=== PATIENT | female | born 1940 | race Caucasian/White ===

== ENCOUNTER 2018-05-22 10:38 | Emergency (ER) | payer MEDICARE ==
[~2018-05-22] VITALS: Ht 165.1 cm; Wt 97.5 kg
--- OUTSIDE RECORDS SUMMARY | 2018-05-22 10:48 | XMS REPORT | Clinical Summary ---
Author Author [facility] Organization [facility] Address Unknown Phone Unavailable Care Team Providers Care [employer] Maintenance Chief Name Role Phone Elizabeth Holman MD PCP Allergies Active Allergy Reactions Severity Noted Date Comments Adhesive Rash Low 01/28/2017 Tape Current Medications Prescription Sig. Disp. Refills Start End Date Status Date predniSONE (DELTASONE) 1 Take 3 tablets ( 3 MG) Active MG tablet daily DULoxetine (CYMBALTA) 60 Take 60 mg by mouth Active mg capsule daily. alendronate (FOSAMAX) 70 Take 70 mg by mouth every Active MG tablet 7 (seven) days. omeprazole (PRILOSEC) 20 Take 20 mg by mouth Active MG capsule daily. cyanocobalamin (VITAMIN Take 1,000 mcg by mouth Active B-12) 1000 MCG tablet daily. calcium phosphate-vitamin Chew 2 tablets daily. Active D3 250-400 mg-unit gummy bite Active Problems Problem Noted Date Coronary artery disease involving [place] coronary artery of [place] heart 03/2017 without angina pectoris Morbid obesity due to excess calories ([facility]) 12/14/2016 PMR (polymyalgia rheumatica) ([facility]) 12/14/2016 Weakness 08/26/2015 Last Assessment & Plan: Hold statin Pain 08/26/2015 Last Assessment & Plan: ESR and CRP elevated and i suspect she has PMR. I discussed this with Dr. Andrea and she agrees. Rheumatology consulted. Low dose steroids initiated Cont to hold statin CSF spinal culture shows no growth; protein wnl Enterovirus negative MRI of C-spine and head negative for acute process Fatigue 08/26/2015 Last Assessment & Plan: PT Fall risk Mixed hyperlipidemia 08/26/2015 Last Assessment & Plan: Hold statin for now Depression 08/26/2015 Last Assessment & Plan: cont lexapro Heart murmur 08/26/2015 Last Assessment & Plan: Echo shows no abnormalities Agatston CAC score, >400 03/03/2015 Overview: Total CACS 625 Obstructive sleep apnea 08/31/2012 Overview: ICD-10 conversion Essential hypertension Resolved Problems Problem Noted Date Resolved Date Temporal arteritis (HCC) 08/28/2015 12/09/2016 Family History Medical History Relation Name Comments Diabetes Daughter Diabetes Mellitus; Rheum arthritis Father Rheumatoid Arthritis; Stroke Father Stroke Syndrome; Hypertension Mother Relation Name Status Comments Daughter Father Mother Social History Tobacco Use Types Packs/Day Years Used Date Never Smoker Smokeless Tobacco: Never Used Alcohol Use Drinks/Week oz/Week Comments No Sex Assigned at Date Recorded Not on file Last Filed Vital Signs Vital Sign Reading Time Taken Blood Pressure 152/91 01/28/2017 11:00 AM CDT Pulse 84 01/28/2017 11:00 AM CDT Temperature 37.2 C (99 F) 09/02/2015 12:45 PM CDT Respiratory Rate 17 09/02/2015 1:00 PM CDT Oxygen Saturation 96% 09/02/2015 1:00 PM CDT Inhaled Oxygen - - Concentration Weight 96.4 kg (212 lb 9.6 oz) 01/28/2017 11:00 AM CDT Height 165.1 cm (5' 5") 01/28/2017 11:00 AM CDT Body Mass Index 35.38 01/28/2017 11:00 AM CDT Plan of Treatment Health Maintenance Due Date Last Done Comments Medicare Annual Wellness 1940 Td # 1940 Zoster Vaccine# (1 of 2) 10/06/1989 Depression Screening 10/06/2004 PHQ-9 # Osteoporosis Screening 10/06/2004 Pneumococcal Immunization 10/06/2004 65+ (1 of 2 - PCV13) Fall Risk Assessment # 09/01/2016 09/02/2015 Influenza Vaccine (#1) 2018 Implants Implanted Type Area Senior Software Test Engineer Device Expiration Model / Identifier Date Serial / Lot Knee Implants Hip Implant Spacer L 3/4 Results Not on filefrom Last 3 Months
--- OUTSIDE RECORDS SUMMARY | 2018-05-22 10:48 | XMS REPORT | Continuity of Care Document ---
Author Author [facility] Organization [facility] Address Unknown Phone Unavailable Allergies There is no data. Medications There is no data. Problems Date Dx Coded Attending Type Code Diagnosis Diagnosed By 12/27/2014 ELLE MCGINNIS, VINAYAK Larson Ot 724.4 12/27/2014 ELLE MCGINNIS, VINAYAK Larson Ot 781.2 12/27/2014 ELLE MCGINNIS, VINAYAK Larson Ot V57.1 01/01/2015 ELLE MCGINNIS, VINAYAK Larson Ot 724.4 01/01/2015 ELLE MCGINNIS, VINAYAK Larson Ot 781.2 01/01/2015 ELLE MCGINNIS, VINAYAK Larson Ot V57.1 01/02/2015 ELLE MCGINNIS, VINAYAK Larson Ot 724.4 01/02/2015 ELLE MCGINNIS, VINAYAK Larson Ot 781.2 01/02/2015 ELLE MCGINNIS, VINAYAK Larson Ot V57.1 01/15/2015 ELLE MCGINNIS, VINAYAK Larson Ot 724.4 01/15/2015 ELLE MCGINNIS, VINAYAK Larson Ot 781.2 01/15/2015 ELLE MCGINNIS, VINAYAK Larson Ot M54.16 01/15/2015 ELLE MCGINNIS, VINAYAK Larson Ot R26.9 Procedures There is no data. Results There is no data. Encounters ACCT No. Visit Date/Time Discharge Status Pt. Type Provider Facility Loc./Unit Complaint [id number] 01/15/2015 12:45:00 01/15/2015 13:36:00 DIS Outpatient VINAYAK ALMEIDA MD [facility] [id number] 01/01/2015 10:22:00 01/01/2015 00:01:00 DIS Outpatient VINAYAK ALMEIDA MD [id number] 01/13/2015 14:37:50 ACT Document Registration
--- NOTE | 2018-05-22 11:05 | ED Back Pain ---
General Stated Complaint: BACK PAIN Source of Information: Patient Exam Limitations: No Limitations History of Present Illness Date Seen by Provider: May 22, 2018 Time Seen by Provider: 11:03 Initial Comments To ER per private vehicle with reports of worsening back pain since Tuesday of last week. She has a history of laminectomy to the lower back, they do not recall which level this was done. This was done by Dr. Senior 4 years ago. She denies any recent injury. He became worse on Tuesday, radiates down both legs but worse on the right leg. She has had loss of control of her bladder for the past few days with new or onset incontinence. She states that she wakes up several times during the night about 4-5 times during the night with the urge to urinate. So, she does have the urge to urinate and this is not likely an overflow incontinence. No fevers or chills. She does not have saddle anesthesia and states that she is able to feel her genitals and sensation is normal. Location: Lumbar Spine Timing/Duration: 5-6 Days Severity: Moderate Pain/Injury Location: Back Associated Symptoms: lower back pain, loss of bladder control Allergies and Home Medications Allergies Coded Allergies: No Known Drug Allergies (Unverified , 05/22/18) Home Medications Cefuroxime Axetil 250 Mg Tablet, 250 MG PO BID Prescribed by: DEWEY BARTON on 05/22/18 1412 Hydrocodone/Acetaminophen 1 Each Tablet, 1 EACH PO Q6H PRN for PAIN-MODERATE Prescribed by: DEWEY BARTON on 05/22/18 1412 Patient Home Medication List Home Medication List Reviewed: Yes Review of Systems Constitutional: see HPI EENTM: see HPI Respiratory: no symptoms reported Cardiovascular: no symptoms reported Genitourinary: see HPI, incontinence Musculoskeletal: see HPI, back pain Skin: no symptoms reported Psychiatric/Neurological: No Symptoms Reported Past Ypwydbl-Hedkyx-Mjkbso Hx Patient Social History Recent Foreign Travel: No (N) Contact w/Someone Who Travel: No (N) Physical Exam Vital Signs Vital Signs - First Documented 05/22/18 10:56 Temp 98.1 Pulse 88 Resp 18 B/P (MAP) 136/82 (100) Pulse Ox 92 O2 Delivery Room Air Capillary Refill : Height, Weight, BMI Height: '" Weight: lbs. oz. kg; BMI Method: General Appearance: No Apparent Distress, WD/WN Neck: Full Range of Motion, Normal Inspection Respiratory: No Accessory Muscle Use, No Respiratory Distress Gastrointestinal: Normal Bowel Sounds, Non Tender, Soft Extremity: Normal Capillary Refill, Normal Inspection Neurologic/Psychiatric: Alert, Oriented x3, Other (left lower extremity strength with plantar flexion and dorsiflexion is 5 out of 5, right is 4 out of 5. Sensation is intact both lower extremities and equal. Both lower extremities are warm) Skin: Normal Color, Warm/Dry Progress/Results/Core Measures Results/Orders Lab Results Laboratory Tests Test 05/22/18 11:12 05/22/18 11:58 Range/Units White Blood Count 7.2 4.3-11.0 10^3/uL Red Blood Count 4.40 4.35-5.85 10^6/uL Hemoglobin 13.6 11.5-16.0 G/DL Hematocrit 42 35-52 % Mean Corpuscular Volume 95 80-99 FL Mean Corpuscular Hemoglobin 31 25-34 PG Mean Corpuscular Hemoglobin Concent 33 32-36 G/DL Red Cell Distribution Width 14.8 H 10.0-14.5 % Platelet Count 220 130-400 10^3/uL Mean Platelet Volume 9.2 7.4-10.4 FL Neutrophils (%) (Auto) 62 42-75 % Lymphocytes (%) (Auto) 27 12-44 % Monocytes (%) (Auto) 10 0-12 % Eosinophils (%) (Auto) 2 0-10 % Basophils (%) (Auto) 0 0-10 % Neutrophils # (Auto) 4.5 1.8-7.8 X 10^3 Lymphocytes # (Auto) 1.9 1.0-4.0 X 10^3 Monocytes # (Auto) 0.7 0.0-1.0 X 10^3 Eosinophils # (Auto) 0.1 0.0-0.3 10^3/uL Basophils # (Auto) 0.0 0.0-0.1 10^3/uL Prothrombin Time 12.8 12.2-14.7 SEC INR Comment 1.0 0.8-1.4 Activated Partial Thromboplast Time 31 24-35 SEC Sodium Level 137 135-145 MMOL/L Potassium Level 3.9 3.6-5.0 MMOL/L Chloride Level 98 98-107 MMOL/L Carbon Dioxide Level 28 21-32 MMOL/L Anion Gap 11 5-14 MMOL/L Blood Urea Nitrogen 21 H 7-18 MG/DL Creatinine 0.88 0.60-1.30 MG/DL Estimat Glomerular Filtration Rate > 60 BUN/Creatinine Ratio 24 Glucose Level 102 70-105 MG/DL Calcium Level 10.2 H 8.5-10.1 MG/DL Corrected Calcium 8.5-10.1 MG/DL Total Bilirubin 0.4 0.1-1.0 MG/DL Aspartate Amino Transf (AST/SGOT) 22 5-34 U/L Alanine Aminotransferase (ALT/SGPT) 17 0-55 U/L Alkaline Phosphatase 70 40-136 U/L Total Protein 7.8 6.4-8.2 GM/DL Albumin 4.6 H 3.2-4.5 GM/DL Urine Color YELLOW Urine Clarity VERY CLOUDY H Urine pH 8 5-9 Urine Specific [place] 1.010 L 1.016-1.022 Urine Protein 1+ H NEGATIVE Urine Glucose (UA) NEGATIVE NEGATIVE Urine Ketones NEGATIVE NEGATIVE Urine Nitrite NEGATIVE NEGATIVE Urine Bilirubin NEGATIVE NEGATIVE Urine Urobilinogen 1 NORMAL MG/DL Urine Leukocyte Esterase 3+ H NEGATIVE Urine RBC (Auto) NEGATIVE NEGATIVE Urine RBC NONE /HPF Urine WBC 10-25 H /HPF Urine Squamous Epithelial Cells 10-25 H /HPF Urine Crystals NONE /LPF Urine Bacteria NEGATIVE /HPF Urine Casts NONE /LPF Urine Mucus NEGATIVE /LPF Urine Culture Indicated YES My Orders Orders - DEWEY BARTON APRN Cbc With Automated Diff (05/22/18 11:00) Comprehensive Metabolic Panel (05/22/18 11:00) Iv Heplock-Insert (Order) (05/22/18 11:00) Mri Lumbar Spine W/O Contrast (05/22/18 11:00) Ua Culture If Indicated (05/22/18 11:00) Bladder Scan (05/22/18 11:00) Ketorolac Injection (Toradol Injection) (05/22/18 11:15) Hydrocodone/Apap 5/325 Tablet (Lortab 5 (05/22/18 11:15) Mri Lumbar Spine W/O Contrast (05/22/18 11:01) Protime With Inr (05/22/18 11:40) Partial Thromboplastin Time (05/22/18 11:40) Urine Culture (05/22/18 11:58) Ceftriaxone For Iv Use (Rocephin For I (05/22/18 12:30) Medications Given in ED Current Medications Medications Dose Ordered Sig/Suki Route Start Time Stop Time Status Last Admin Dose Admin Acetaminophen/ Hydrocodone Bitart 1 tab ONCE ONCE PO 05/22/18 11:15 05/22/18 11:16 DC 05/22/18 11:18 1 TAB Ceftriaxone Sodium 1000 mg/ Sterile Water 10 ml @ 200 mls/hr ONCE ONCE IV 05/22/18 12:30 05/22/18 12:32 DC 05/22/18 13:11 200 MLS/HR Ketorolac Tromethamine 15 mg ONCE ONCE IVP 05/22/18 11:15 05/22/18 11:16 DC 05/22/18 11:20 15 MG Vital Signs/I&O 05/22/18 10:56 Temp 98.1 Pulse 88 Resp 18 B/P (MAP) 136/82 (100) Pulse Ox 92 O2 Delivery Room Air Diagnostic Imaging Diagonstic Imaging: MRI Comments NAME: [facility] REC#: [id number] PT STATUS: REG ER : 1940 PHYSICIAN: DEWEY BARTON APRN ADMIT DATE: 05/22/18/ER Draft Date of Exam:05/22/18 MRI LUMBAR SPINE W/O CONTRAST PROCEDURE: MRI lumbar spine. TECHNIQUE: Multiplanar, multisequence MRI of the lumbar spine was performed without contrast. INDICATION: Severe low back pain. Bilateral lower extremity pain and numbness. Urinary incontinence. COMPARISON: None. FINDINGS: Moderate left apex curvature centered at L3-L4. Minimal anterolisthesis of L4 on L5. There are postoperative findings of bilateral shen and pedicle screw fixation with interbody fusion at L3-L4. No focally suspicious bone marrow signal. No abnormal signal in the conus which terminates at L1. Normal morphology of the cauda equina. The visualized paravertebral soft tissues are unremarkable. 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 L1-L2: No spinal canal, lateral recess, or neuroforaminal narrowing. L2-L3: A right paracentral through foraminal disc protrusion results in moderate right lateral recess narrowing and contributes to advanced right neuroforaminal narrowing. There is also mild left neuroforaminal narrowing. No substantial spinal canal narrowing. L3-L4: Disc space height loss contributes to mild bilateral neuroforaminal narrowing. No substantial spinal canal narrowing. L4-L5: No substantial spinal canal or lateral recess narrowing. Disc space height loss and scoliosis contribute to moderate right neuroforaminal narrowing. L5-S1: No spinal canal or lateral recess narrowing. Disc space height loss contributes to mild bilateral neuroforaminal narrowing. IMPRESSION: 1. Postoperative findings of bilateral shen and pedicle screw fixation with interbody fusion at L3-L4. 2. No high-grade spinal canal narrowing. Scattered lateral recess and neuroforaminal narrowing as above. 3. No acute osseous findings. Dictated on workstation # [id number] Dict: 05/22/18 1321 Trans: 05/22/18 1338 [id number] Interpreted by: MALAIKA VAZQUEZ MD Electronically signed by: Departure Communication (Admissions) Family Conversation I discussed the case with Dr. Senior and he agrees to see her in the outpatient setting. I'll make an appointment for her. 1208-she was asked to urinate and did so on command, post void residual volume was 32 mL on bladder scan Impression Primary Impression: Urinary tract infection Qualified Codes: N39.0 - Urinary tract infection, site not specified Additional Impression: Lumbar radiculopathy Disposition: 01 HOME, SELF-CARE Condition: Stable Departure-Patient Inst. Decision time for Depature: 14:11 Referrals: SABAS SENIOR,LOCAL PHYSICIAN (PCP) Primary Care Physician Patient Instructions: Radiculopathy (DC), Urinary Tract Infection, Adult (DC) Add. Discharge Instructions: 1. You do not hear back from Dr. Senior [employer] today then call his office tomorrow to make an appointment to be seen at their earliest convenience. Pain medication and antibiotics as directed. Scripts Hydrocodone/Acetaminophen ([address] 5-325 Tablet) 1 Each Tablet 1 EACH PO Q6H PRN for PAIN-MODERATE MDD 10, #14 TAB Prov: DEWEY BARTON MEAT SUPERVISOR 05/22/18 Cefuroxime Axetil (Cefuroxime) 250 Mg Tablet 250 MG PO BID, #10 TAB Prov: DEWEY BARTON MEAT SUPERVISOR 2/18/19 Copy Copies To 1: SABAS SENIOR PETER J APRN May 22, 2018 11:05
[2018-05-22] MEDS ORDERED: KETOROLAC 30 MG/ML VIAL IVP ONE (11:15)
[2018-05-22] MEDS ORDERED: HYDROcodone/APAP 5 MG/325 MG (LORTAB) TAB PO ONE (11:15)
[2018-05-22 11:17] LABS: BASOPHILS % (AUTO) 0 % (0-10); EOSINOPHILS # (AUTO) 0.1 10^3/uL (0.0-0.3); EOSINOPHILS % (AUTO) 2 % (0-10); HEMATOCRIT 42 % (35-52); HEMOGLOBIN 13.6 G/DL (11.5-16.0); LYMPHOCYTES # (AUTO) 1.9 X 10^3 (1.0-4.0); LYMPHOCYTES % (AUTO) 27 % (12-44); MEAN CORPUSCULAR HEMOGLOBIN 31 PG (25-34); MEAN CORPUSCULAR HGB CONC 33 G/DL (32-36); MEAN CORPUSCULAR VOLUME 95 FL (80-99); MEAN PLATELET VOLUME 9.2 FL (7.4-10.4); MONOCYTES # (AUTO) 0.7 X 10^3 (0.0-1.0); MONOCYTES % (AUTO) 10 % (0-12); NEUTROPHILS # (AUTO) 4.5 X 10^3 (1.8-7.8); NEUTROPHILS % (AUTO) 62 % (42-75); PLATELET COUNT 220 10^3/uL (130-400); RED CELL DISTRIBUTION WIDTH 14.8 % (10.0-14.5); WHITE BLOOD COUNT 7.2 10^3/uL (4.3-11.0)
[2018-05-22 11:34] LABS: ALANINE AMINOTRANSFERASE 17 U/L (0-55); ALBUMIN 4.6 GM/DL (3.2-4.5); ALKALINE PHOSPHATASE 70 U/L (40-136); BILIRUBIN,TOTAL 0.4 MG/DL (0.1-1.0); BUN/CREATININE RATIO 24; CALCIUM 10.2 MG/DL (8.5-10.1); CARBON DIOXIDE 28 MMOL/L (21-32); CHLORIDE 98 MMOL/L (98-107); CREATININE SERUM 0.88 MG/DL (0.60-1.30); GFR ESTIMATED > 60; GLUCOSE 102 MG/DL (70-105); POTASSIUM 3.9 MMOL/L (3.6-5.0); SODIUM 137 MMOL/L (135-145); TOTAL PROTEIN 7.8 GM/DL (6.4-8.2)
[2018-05-22 11:55] LABS: PROTHROMBIN TIME PATIENT 12.8 SEC (12.2-14.7)
[2018-05-22 12:11] LABS: BILIRUBIN,URINE NEGATIVE (NEGATIVE); CLARITY,URINE VERY CLOUDY; COLOR,URINE YELLOW; GLUCOSE, URINE (UA) NEGATIVE (NEGATIVE); KETONES,URINE NEGATIVE (NEGATIVE); LEUKOCYTE ESTERASE ,URINE 3+ (NEGATIVE); NITRITE,URINE NEGATIVE (NEGATIVE); PH,URINE 8 (5-9); PROTEIN,URINE 1+ (NEGATIVE); UROBILINOGEN,URINE 1 MG/DL (NORMAL)
[2018-05-22 12:25] LABS: BACTERIA,URINE NEGATIVE /HPF
[2018-05-22] MEDS ORDERED: cefTRIAXone FOR IV USE 1,000 MG in WATER (STERILE) FOR INJECTION 10 ML IV ONE (12:30)
--- NOTE | 2018-05-22 13:38 | Diagnostic Imaging Report ---
PROCEDURE: MRI lumbar spine. TECHNIQUE: Multiplanar, multisequence MRI of the lumbar spine was performed without contrast. INDICATION: Severe low back pain. Bilateral lower extremity pain and numbness. Urinary incontinence. COMPARISON: None. FINDINGS: Moderate left apex curvature centered at L3-L4. Minimal anterolisthesis of L4 on L5. There are postoperative findings of bilateral shen and pedicle screw fixation with interbody fusion at L3-L4. No focally suspicious bone marrow signal. No abnormal signal in the conus which terminates at L1. Normal morphology of the cauda equina. The visualized paravertebral soft tissues are unremarkable. 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 L1-L2: No spinal canal, lateral recess, or neuroforaminal narrowing. L2-L3: A right paracentral through foraminal disc protrusion results in moderate right lateral recess narrowing and contributes to advanced right neuroforaminal narrowing. There is also mild left neuroforaminal narrowing. No substantial spinal canal narrowing. L3-L4: Disc space height loss contributes to mild bilateral neuroforaminal narrowing. No substantial spinal canal narrowing. L4-L5: No substantial spinal canal or lateral recess narrowing. Disc space height loss and scoliosis contribute to moderate right neuroforaminal narrowing. L5-S1: No spinal canal or lateral recess narrowing. Disc space height loss contributes to mild bilateral neuroforaminal narrowing. IMPRESSION: 1. Postoperative findings of bilateral shen and pedicle screw fixation with interbody fusion at L3-L4. 2. No high-grade spinal canal narrowing. Scattered lateral recess and neuroforaminal narrowing as above. 3. No acute osseous findings. Dictated by: Dictated on workstation # [id number]
[2018-05-22 14:27] VITALS: BP 142/109
== END 2018-05-22 14:36 | disposition home or self-care (01) ==
LOC: EDUNIT# 10:38 → ER 10:45
DX: N39.0 Urinary tract infection, site not specified (principal); M54.16 Radiculopathy, lumbar region; Z98.1 Arthrodesis status
CPT/HCPCS: 36415; 72148; 80053; 81000; 85025; 85610; 85730; 87088; 96374; 96375

== ENCOUNTER → 2018-06-30 | Outpatient (CLI) | payer MEDICARE ==
[~2018-06-30] MED LIST: CEFU250T80 PO; HYDR-4226 PO
[2018-06-30 15:16] LABS: BASOPHILS % (AUTO) 0 % (0-10); EOSINOPHILS # (AUTO) 0.1 10^3/uL (0.0-0.3); EOSINOPHILS % (AUTO) 2 % (0-10); HEMATOCRIT 35 % (35-52); HEMOGLOBIN 11.4 G/DL (11.5-16.0); LYMPHOCYTES % (AUTO) 27 % (12-44); MEAN CORPUSCULAR HEMOGLOBIN 31 PG (25-34); MEAN CORPUSCULAR HGB CONC 33 G/DL (32-36); MEAN CORPUSCULAR VOLUME 96 FL (80-99); MEAN PLATELET VOLUME 8.2 FL (7.4-10.4); MONOCYTES % (AUTO) 13 % (0-12); NEUTROPHILS # (AUTO) 4.4 X 10^3 (1.8-7.8); NEUTROPHILS % (AUTO) 59 % (42-75); PLATELET COUNT 398 10^3/uL (130-400); RED CELL DISTRIBUTION WIDTH 14.9 % (10.0-14.5); WHITE BLOOD COUNT 7.5 10^3/uL (4.3-11.0)
[2018-06-30 15:47] LABS: ALANINE AMINOTRANSFERASE 11 U/L (0-55); ALBUMIN 4.2 GM/DL (3.2-4.5); ALKALINE PHOSPHATASE 148 U/L (40-136); BILIRUBIN,TOTAL 0.5 MG/DL (0.1-1.0); BUN/CREATININE RATIO 18; CALCIUM 9.9 MG/DL (8.5-10.1); CARBON DIOXIDE 24 MMOL/L (21-32); CHLORIDE 100 MMOL/L (98-107); CREATININE SERUM 0.87 MG/DL (0.60-1.30); GFR ESTIMATED > 60; GLUCOSE 91 MG/DL (70-105); POTASSIUM 3.7 MMOL/L (3.6-5.0); SODIUM 140 MMOL/L (135-145); TOTAL PROTEIN 7.6 GM/DL (6.4-8.2)
== END ==
LOC: LAB 14:51
PROVIDERS: ATTEND Internal Medicine
DX: D62 Acute posthemorrhagic anemia (principal); R53.83 Other fatigue; E86.0 Dehydration
CPT/HCPCS: 36415; 80053; 82728; 83540; 85025

== ENCOUNTER → 2019-06-20 | Outpatient (CLI) | payer MEDICARE ==
[2019-06-20 11:58] LABS: ALANINE AMINOTRANSFERASE 12 U/L (0-55); ALBUMIN 4.3 GM/DL (3.2-4.5); ALKALINE PHOSPHATASE 77 U/L (40-136); BILIRUBIN,TOTAL 0.4 MG/DL (0.1-1.0); BUN/CREATININE RATIO 19; CALCIUM 9.6 MG/DL (8.5-10.1); CARBON DIOXIDE 28 MMOL/L (21-32); CHLORIDE 98 MMOL/L (98-107); CREATININE SERUM 0.83 MG/DL (0.60-1.30); GFR ESTIMATED > 60; GLUCOSE 96 MG/DL (70-105); POTASSIUM 4.3 MMOL/L (3.6-5.0); SODIUM 140 MMOL/L (135-145); TOTAL PROTEIN 7.6 GM/DL (6.4-8.2)
[2019-06-20 11:59] LABS: EOSINOPHILS % (AUTO) 3 % (0-10); HEMATOCRIT 35 % (35-52); HEMOGLOBIN 10.8 G/DL (11.5-16.0); LYMPHOCYTES % (AUTO) 32 % (12-44); MEAN CORPUSCULAR HEMOGLOBIN 26 PG (25-34); MEAN CORPUSCULAR HGB CONC 31 G/DL (32-36); MEAN CORPUSCULAR VOLUME 85 FL (80-99); MEAN PLATELET VOLUME 9.4 FL (7.4-10.4); MONOCYTES % (AUTO) 10 % (0-12); NEUTROPHILS % (AUTO) 55 % (42-75); PLATELET COUNT 301 10^3/uL (130-400); RED CELL DISTRIBUTION WIDTH 16.5 % (10.0-14.5); WHITE BLOOD COUNT 6.8 10^3/uL (4.3-11.0)
[2019-06-20 12:00] LABS: BASOPHILS % (AUTO) 0 % (0-10); EOSINOPHILS # (AUTO) 0.2 10^3/uL (0.0-0.3); LYMPHOCYTES # (AUTO) 2.2 X 10^3 (1.0-4.0); MONOCYTES # (AUTO) 0.7 X 10^3 (0.0-1.0); NEUTROPHILS # (AUTO) 3.7 X 10^3 (1.8-7.8)
[2019-06-20 15:27] LABS: CHOLESTEROL 245 MG/DL (< 200); HDL CHOLESTEROL 64 MG/DL (40-60); TRIGLYCERIDES 217 MG/DL (<150); VLDL CHOLESTEROL 43 MG/DL (5-40)
[2019-06-20 15:51] LABS: FREE T4 (FREE THYROXINE) 0.79 NG/DL (0.70-1.48)
== END ==
LOC: LAB FS 10:05
PROVIDERS: ATTEND Internal Medicine
DX: E03.9 Hypothyroidism, unspecified (principal); R73.9 Hyperglycemia, unspecified; I10 Essential (primary) hypertension; Z13.6 Encounter for screening for cardiovascular disorders
CPT/HCPCS: 36415; 80053; 80061; 83036; 84439; 84443; 85025

== ENCOUNTER → 2019-08-28 | Outpatient (CLI) | payer MEDICARE | LOC: LAB FS 10:24 | PROVIDERS: ATTEND Internal Medicine | DX: Z13.6 Encounter for screening for cardiovascular disorders (principal); I10 Essential (primary) hypertension; R73.9 Hyperglycemia, unspecified | CPT/HCPCS: 36415; 80061; 83036; 84443 ==

== ENCOUNTER → 2019-11-09 | Outpatient (CLI) | payer MEDICARE | LOC: LAB FS 11:48 | PROVIDERS: ATTEND Internal Medicine | DX: D64.9 Anemia, unspecified (principal) | CPT/HCPCS: 36415; 82728 ==

== ENCOUNTER → 2019-11-15 | Outpatient (CLI) | payer MEDICARE ==
[~2019-11-15] VITALS: Ht 65 cm; Wt 97.2 kg
[~2019-11-15] MED LIST changes: +IRON DEXTRAN 1,000 MG/NS 250 ML IVPB IV ONE; +IRON DEXTRAN 25 MG/NS 6.25 ML TOTAL VOLUME IV NR
[2019-11-15 16:00] VITALS: BP 168/99
== END ==
LOC: SDC 12:55
PROVIDERS: ATTEND Internal Medicine
DX: E83.10 Disorder of iron metabolism, unspecified (principal)
CPT/HCPCS: 96365

== ENCOUNTER → 2019-12-20 | Outpatient (CLI) | payer MEDICARE ==
[~2019-12-20] MED LIST changes: -IRON DEXTRAN 1,000 MG/NS 250 ML IVPB IV ONE; -IRON DEXTRAN 25 MG/NS 6.25 ML TOTAL VOLUME IV NR
[2019-12-20 10:30] LABS: HEMATOCRIT 40 % (35-52); HEMOGLOBIN 12.2 G/DL (11.5-16.0); MEAN CORPUSCULAR HEMOGLOBIN 28 PG (25-34); WHITE BLOOD COUNT 5.5 10^3/uL (4.3-11.0)
[2019-12-20 10:31] LABS: BASOPHILS % (AUTO) 0 % (0-10); EOSINOPHILS # (AUTO) 0.2 10^3/uL (0.0-0.3); EOSINOPHILS % (AUTO) 4 % (0-10); LYMPHOCYTES # (AUTO) 1.7 X 10^3 (1.0-4.0); LYMPHOCYTES % (AUTO) 31 % (12-44); MEAN CORPUSCULAR HGB CONC 31 G/DL (32-36); MEAN CORPUSCULAR VOLUME 90 FL (80-99); MEAN PLATELET VOLUME 8.9 FL (7.4-10.4); MONOCYTES # (AUTO) 0.6 X 10^3 (0.0-1.0); MONOCYTES % (AUTO) 11 % (0-12); NEUTROPHILS % (AUTO) 54 % (42-75); PLATELET COUNT 227 10^3/uL (130-400)
== END ==
LOC: LAB FS 09:39
PROVIDERS: ATTEND Internal Medicine
DX: D50.0 Iron deficiency anemia secondary to blood loss (chronic) (principal)
CPT/HCPCS: 36415; 82728; 83540; 85025

== ENCOUNTER → 2020-03-04 | Outpatient (CLI) | payer MEDICARE ==
--- NOTE | 2020-03-04 12:31 | Diagnostic Imaging Report ---
EXAMINATION: Left ankle 3 views HISTORY: ANKLE PAIN COMPARISON: None available. FINDINGS: There is moderate medial malleolus with tissue swelling. No acute fracture seen. Mortise is intact. IMPRESSION: 1. Moderate medial malleolar swelling without acute fracture. Dictated by: Dictated on workstation # [id number]
== END ==
LOC: RAD FS 10:54
PROVIDERS: ATTEND Internal Medicine
DX: M25.572 Pain in left ankle and joints of left foot (principal); M79.89 Other specified soft tissue disorders
CPT/HCPCS: 73610

== ENCOUNTER 2020-06-10 10:18 | Outpatient (CLI) | payer MEDICARE ==
[~2020-06-10] VITALS: Ht 165.1 cm; Wt 102.7 kg
[2020-06-10 10:25] VITALS: BP 150/98
[2020-06-10] MEDS ORDERED: IRON DEXTRAN 25 MG/NS 6.25 ML TOTAL VOLUME IV NR ×3 (10:45)
[2020-06-10] MEDS ORDERED: IRON DEXTRAN 1,000 MG/NS 250 ML IVPB IV NR ×2 (11:00)
== END 2020-06-10 12:45 | disposition home or self-care (01) ==
LOC: SDC 10:18
PROVIDERS: ATTEND Internal Medicine
DX: E61.1 Iron deficiency (principal)
CPT/HCPCS: 96365

== ENCOUNTER 2020-09-11 19:08 | Emergency (ER) | payer MEDICARE ==
[~2020-09-11] VITALS: Ht 172 cm; Wt 129.0 kg
--- NOTE | 2020-09-11 20:06 | ED Lower Extremity ---
General Chief Complaint: Trauma-Non Activation Stated Complaint: FALL Nursing Triage Note: patient fell from standing Nursing Sepsis Screen: No Definite Risk Source: patient Exam Limitations: no limitations (DEWEY BARTON APRN) History of Present Illness Date Seen by Provider: Sep 11, 2020 Time Seen by Provider: 20:06 Initial Comments To ER by [facility] with reports of right leg pain. Her slipped and fell and brought the ambulance here to be evaluated. She was then going to talk to someone on the phone and while in her house she too slipped and fell now having severe right thigh pain. Did not hit her head. She had her right knee replaced by Dr. ALMEIDA [facility] [address] [place] [address] about a year ago. She follows with [facility] rheumatology for polymyalgia rheumatica and is on. No anticoagulant use. Location Injury Occurred: at facility Onset: just prior to arrival Severity: moderate Pain/Injury Location: right leg Method of Injury: fell Modifying Factors: Worse With Movement (DEWEY BARTON APRN) Allergies and Home Medications Allergies Coded Allergies: No Known Drug Allergies (Unverified , 05/22/18) Home Medications Cefuroxime Axetil 250 Mg Tablet, 250 MG PO BID Prescribed by: DEWEY BARTON on 05/22/18 1412 Hydrocodone/Acetaminophen 1 Each Tablet, 1 EACH PO Q6H PRN for PAIN-MODERATE Prescribed by: DEWEY BARTON on 05/22/18 1412 Patient Home Medication List Home Medication List Reviewed: Yes (DEWEY BARTON APRN) Review of Systems Constitutional: see HPI EENTM: see HPI Respiratory: no symptoms reported Cardiovascular: no symptoms reported Genitourinary: no symptoms reported Musculoskeletal: see HPI Skin: no symptoms reported Psychiatric/Neurological: No Symptoms Reported (DEWEY BARTON APRN) Past Lxwyfxm-Zpjylp-Yhgkil Hx Patient Social History Alcohol Use: Denies Use Smoking Status: Never a Smoker 2nd Hand Smoke Exposure: No Recent Infectious Disease Expo: No Recent Hopitalizations: No (DEWEY BARTON APRN) Seasonal Allergies Seasonal Allergies: No (DEWEY BARTON APRN) Past Medical History Surgeries: Yes (bilat hip, bilat knee, gastric bypass) Abdominal, Orthopedic Respiratory: No Cardiac: Yes Hypertension Neurological: No Genitourinary: No Gastrointestinal: No Musculoskeletal: No Endocrine: No HEENT: No Cancer: No Psychosocial: No Integumentary: No Blood Disorders: No (DEWEY BARTON APRN) Physical Exam Vital Signs Vital Signs - First Documented 09/11/20 19:37 Temp 36.9 Pulse 114 Resp 20 B/P (MAP) 154/96 (115) Pulse Ox 93 O2 Delivery Room Air (CHRISTIAN RUBIN MD) Vital Signs Capillary Refill : Greater Than 3 Seconds (DEWEY BARTON APRN) Height, Weight, BMI Height: 5'5.00" Weight: 215lbs. oz. 97.239388be; 43.00 BMI Method:Stated General Appearance: WD/WN, no apparent distress HEENT: PERRL/EOMI, normal ENT inspection Neck: non-tender, full range of motion Respiratory: no respiratory distress, no accessory muscle use Hips: bilateral hip non-tender, bilateral hip normal inspection, bilateral hip normal range of motion Legs: left leg non-tender, left leg normal inspection, left leg normal range of motion; right leg pain, right leg soft tissue tenderness, right leg swelling Knees: left knee non-tender, left knee normal inspection, left knee normal range of motion; right knee pain, right knee soft tissue tenderness, right knee swelling Ankles: bilateral ankle non-tender, bilateral ankle normal inspection, bilateral ankle normal range of motion Neurologic/Psychiatric: alert, normal mood/affect, oriented x 3 Skin: normal color, warm/dry (DEWEY BARTON APRN) Progress/Results/Core Measures Results/Orders Lab Results Laboratory Tests Test 09/11/20 20:00 09/11/20 22:06 Range/Units White Blood Count 8.1 4.3-11.0 10^3/uL Red Blood Count 4.20 3.80-5.11 10^6/uL Hemoglobin 13.5 11.5-16.0 g/dL Hematocrit 41 35-52 % Mean Corpuscular Volume 99 80-99 fL Mean Corpuscular Hemoglobin 32 25-34 pg Mean Corpuscular Hemoglobin Concent 33 32-36 g/dL Red Cell Distribution Width 13.2 10.0-14.5 % Platelet Count 176 130-400 10^3/uL Mean Platelet Volume 9.0 9.0-12.2 fL Immature Granulocyte % (Auto) 1 % Neutrophils (%) (Auto) 61 42-75 % Lymphocytes (%) (Auto) 27 12-44 % Monocytes (%) (Auto) 9 0-12 % Eosinophils (%) (Auto) 3 0-10 % Basophils (%) (Auto) 0 0-10 % Neutrophils # (Auto) 4.9 1.8-7.8 10^3/uL Lymphocytes # (Auto) 2.2 1.0-4.0 10^3/uL Monocytes # (Auto) 0.7 0.0-1.0 10^3/uL Eosinophils # (Auto) 0.2 0.0-0.3 10^3/uL Basophils # (Auto) 0.0 0.0-0.1 10^3/uL Immature Granulocyte # (Auto) 0.1 0.0-0.1 10^3/uL Prothrombin Time 13.8 12.2-14.7 SEC INR Comment 1.0 0.8-1.4 Sodium Level 141 135-145 MMOL/L Potassium Level 3.9 3.6-5.0 MMOL/L Chloride Level 104 98-107 MMOL/L Carbon Dioxide Level 26 21-32 MMOL/L Anion Gap 11 5-14 MMOL/L Blood Urea Nitrogen 20 H 7-18 MG/DL Creatinine 0.93 0.60-1.30 MG/DL Estimat Glomerular Filtration Rate 58 BUN/Creatinine Ratio 22 Glucose Level 140 H 70-105 MG/DL Calcium Level 9.9 8.5-10.1 MG/DL Corrected Calcium 10.0 8.5-10.1 MG/DL Total Bilirubin 0.4 0.1-1.0 MG/DL Aspartate Amino Transf (AST/SGOT) 18 5-34 U/L Alanine Aminotransferase (ALT/SGPT) 14 0-55 U/L Alkaline Phosphatase 67 40-136 U/L Total Protein 7.3 6.4-8.2 GM/DL Albumin 3.9 3.2-4.5 GM/DL SARS-CoV-2 RNA (RT-PCR) Not Detected Not Detecte (CHRISTIAN RUBIN MD) Vital Signs/I&O 09/11/20 09/11/20 19:37 23:49 Temp 36.9 36.9 Pulse 114 108 Resp 20 19 B/P (MAP) 154/96 (115) 144/90 (115) Pulse Ox 93 97 O2 Delivery Room Air Room Air (CHRISTIAN RUBIN MD) Blood Pressure Mean: 115 Diagnostic Imaging Diagonstic Imaging: Xray Comments NAME: CHRYSTAL CHOIN Lauri [facility] REC#: [id number] PT STATUS: REG ER : 1940 PHYSICIAN: DEWEY BARTON APRN ADMIT DATE: 09/11/20/ER Draft Date of Exam:09/11/20 FEMUR, RIGHT, 2 VIEWS EXAMINATION: Right femur 2 or more views. HISTORY: Fall. COMPARISON: None available. FINDINGS: There is right total hip arthroplasty. There is right knee arthroplasty. There is one shaft width displacement of a periprosthetic fracture of the right distal femur with a spiral orientation. IMPRESSION: One shaft width displacement of a periprosthetic spiral fracture of the right distal femur. Dictated on workstation # [id number] Dict: 09/11/202029 Trans: 09/11/202037 [facility] [id number] Interpreted by: CHRISTIANA SOSA MD Electronically signed by: NAME: STEHPMARICARMEN R [facility] REC#: [id number] PT STATUS: REG ER : 1940 PHYSICIAN: DEWEY BARTON APRN ADMIT DATE: 09/11/20/ER Draft Date of Exam:09/11/20 TIBIA/FIBULA, RIGHT, 2 VIEWS EXAMINATION: Right tibia and fibula 2 views HISTORY: Fall. COMPARISON: None available. FINDINGS: Right distal femur fracture is partially imaged. There is right total knee arthroplasty. There is an old healed right distal tibial fracture. No acute fracture is seen in the tibia or fibula. IMPRESSION: No fracture is seen in the right tibia or fibula. Dictated on workstation # [id number] Dict: 09/11/202030 Trans: 09/11/202037 [facility] [id number] Interpreted by: CHRISTIANA SOSA MD Electronically signed by: NAME: MARICARMEN CHOI R [facility] REC#: [id number] PT STATUS: REG ER : 1940 PHYSICIAN: DEWEY BARTON APRN ADMIT DATE: 09/11/20/ER Draft Date of Exam:09/11/20 CHEST 1 VIEW, AP/PA ONLY EXAMINATION: Chest 1 view. HISTORY: Fracture. COMPARISON: None available. FINDINGS: Heart is mildly enlarged. No pleural effusion or pneumothorax. No edema or pneumonia. IMPRESSION: Clear lungs. Dictated on workstation # [id number] Dict: 09/11/202035 Trans: 09/11/202041 [facility] [id number] Interpreted by: CHRISTIANA SOSA MD Electronically signed by: (DEWEY BARTON APRN) Departure Communication (Admissions) 2042-discussed with the patient and family. The daughter Irene Maloney [phone] lives in [facility], the patient and her live in [place]. She was brought here by [place] [facility]. However her complex periprosthetic fracture requires transfer to higher level of care (was discussed with our on-call orthopedist Dr. Willson). It would make the most sense to go to [facility] where she is already established with rheumatology and she will be closer to her daughter who lives in [place]. Patient's is to be admitted here for his intractable right hip pain without fracture. 2115-I spoke with orthopedist from [facility]. He would recommend the patient be transferred to their facility where her knee was replaced at. As such I called [facility] where Dr. ALMEIDA practices. Their transfer center reports that they are on med-surg diversion. I will call back [facility] and see if they would be willing to accept. 2151-[facility] has called back and accepted her to the [facility]. Would like a rapid covid swab and will call back with bed assignment. (DEWEY BARTON APRN) Impression Primary Impression: Right femoral fracture Disposition: XFER SHT-TRM HOSP Condition: Stable Transfer Transfer Reason: Exceeds level of care Time Spoke to Accepting Phy: 20:45 (DEWEY BARTON APRN) Departure-Patient Inst. Referrals: HODA WHITE DO (PCP/Family) Primary Care Physician Attending physician note: I was physically present as attending physician in the emergency department during the care of this patient, but I did not participate directly in the care of this patient. (CHRISTIAN RUBIN MD) DEWEY BARTON APRN Sep 11, 2020 20:06 CHRISTIAN RUBIN MD Sep 12, 2020 14:22
[2020-09-11 20:11] LABS: BASOPHILS % (AUTO) 0 % (0-10); EOSINOPHILS # (AUTO) 0.2 10^3/uL (0.0-0.3); EOSINOPHILS % (AUTO) 3 % (0-10); HEMATOCRIT 41 % (35-52); HEMOGLOBIN 13.5 g/dL (11.5-16.0); LYMPHOCYTES # (AUTO) 2.2 10^3/uL (1.0-4.0); LYMPHOCYTES % (AUTO) 27 % (12-44); MEAN CORPUSCULAR HEMOGLOBIN 32 pg (25-34); MEAN CORPUSCULAR HGB CONC 33 g/dL (32-36); MEAN CORPUSCULAR VOLUME 99 fL (80-99); MONOCYTES # (AUTO) 0.7 10^3/uL (0.0-1.0); MONOCYTES % (AUTO) 9 % (0-12); NEUTROPHILS # (AUTO) 4.9 10^3/uL (1.8-7.8); NEUTROPHILS % (AUTO) 61 % (42-75); PLATELET COUNT 176 10^3/uL (130-400); WHITE BLOOD COUNT 8.1 10^3/uL (4.3-11.0)
[2020-09-11 20:16] LABS: PROTHROMBIN TIME PATIENT 13.8 SEC (12.2-14.7)
[2020-09-11 20:26] LABS: ALBUMIN 3.9 GM/DL (3.2-4.5); BILIRUBIN,TOTAL 0.4 MG/DL (0.1-1.0); CALCIUM 9.9 MG/DL (8.5-10.1); CREATININE SERUM 0.93 MG/DL (0.60-1.30); POTASSIUM 3.9 MMOL/L (3.6-5.0); TOTAL PROTEIN 7.3 GM/DL (6.4-8.2)
--- NOTE | 2020-09-11 20:38 | Diagnostic Imaging Report ---
EXAMINATION: Right femur 2 or more views. HISTORY: Fall. COMPARISON: None available. FINDINGS: There is right total hip arthroplasty. There is right knee arthroplasty. There is one shaft width displacement of a periprosthetic fracture of the right distal femur with a spiral orientation. IMPRESSION: One shaft width displacement of a periprosthetic spiral fracture of the right distal femur. Dictated by: Dictated on workstation # [id number]
--- NOTE | 2020-09-11 20:39 | Diagnostic Imaging Report ---
EXAMINATION: Right tibia and fibula 2 views HISTORY: Fall. COMPARISON: None available. FINDINGS: Right distal femur fracture is partially imaged. There is right total knee arthroplasty. There is an old healed right distal tibial fracture. No acute fracture is seen in the tibia or fibula. IMPRESSION: No fracture is seen in the right tibia or fibula. Dictated by: Dictated on workstation # [id number]
--- NOTE | 2020-09-11 20:42 | Diagnostic Imaging Report ---
EXAMINATION: Chest 1 view. HISTORY: Fracture. COMPARISON: None available. FINDINGS: Heart is mildly enlarged. No pleural effusion or pneumothorax. No edema or pneumonia. IMPRESSION: Clear lungs. Dictated by: Dictated on workstation # [id number]
[2020-09-11] MEDS ORDERED: fentaNYL INJ 100 MCG/2 ML AMP IVP ONE (21:00)
[2020-09-11 23:49] VITALS: BP 144/90
== END 2020-09-11 23:55 | disposition short-term general hospital (02) ==
LOC: EDUNIT# 19:08 → ER 19:32
DX: S72.491A Other fracture of lower end of right femur, initial encounter for closed fracture (principal); M97.01XA Periprosthetic fracture around internal prosthetic right hip joint, initial encounter; I10 Essential (primary) hypertension; Z20.822 Contact with and (suspected) exposure to COVID-19; W01.0XXA Fall on same level from slipping, tripping and stumbling without subsequent striking against object, initial encounter
CPT/HCPCS: 36415; 71045; 73552; 73590; 80053; 85025; 85610; 87636; 93005

== ENCOUNTER → 2021-05-04 | Outpatient (RCR) | payer MEDICARE | END | disposition home or self-care (01) | PROVIDERS: ATTEND Orthopaedic Surgery | DX: S72.401D Unspecified fracture of lower end of right femur, subsequent encounter for closed fracture with routine healing (principal); W19.XXXD Unspecified fall, subsequent encounter ==

== ENCOUNTER → 2021-06-01 | Outpatient (RCR) | payer MEDICARE | END | disposition home or self-care (01) | PROVIDERS: ATTEND Orthopaedic Surgery | DX: S72.401D Unspecified fracture of lower end of right femur, subsequent encounter for closed fracture with routine healing (principal); W19.XXXD Unspecified fall, subsequent encounter ==

== ENCOUNTER 2021-06-29 11:19 | Outpatient (RCR) | payer MEDICARE | END 2021-07-02 | disposition home or self-care (01) | PROVIDERS: ATTEND Orthopaedic Surgery | DX: S72.401D Unspecified fracture of lower end of right femur, subsequent encounter for closed fracture with routine healing (principal); W19.XXXD Unspecified fall, subsequent encounter ==

== ENCOUNTER 2021-07-17 11:24 | Outpatient (RCR) | payer MEDICARE | END 2021-07-17 12:50 | disposition home or self-care (01) | PROVIDERS: ATTEND Orthopaedic Surgery | DX: S72.401D Unspecified fracture of lower end of right femur, subsequent encounter for closed fracture with routine healing (principal); W19.XXXD Unspecified fall, subsequent encounter; Z96.653 Presence of artificial knee joint, bilateral; Z96.643 Presence of artificial hip joint, bilateral ==

== ENCOUNTER 2021-09-01 05:28 | Outpatient (CLI) | payer MEDICARE ==
[~2021-09-01] VITALS: Ht 165.4 cm; Wt 95.5 kg
[2021-09-01] MEDS ORDERED: TRAM50TA3 PO (13:28)
[2021-09-02] MEDS ORDERED: CARV12.53 PO (11:02)
[2021-09-02] MEDS ORDERED: OMEG1CAP24 PO (11:02)
[2021-09-02] MEDS ORDERED: TOLT1TAB13 PO (11:02)
[2021-09-02] MEDS ORDERED: CHOL10004 PO (11:02)
[2021-09-02] MEDS ORDERED: DULO60CA59 PO (11:02)
[2021-09-02] MEDS ORDERED: OMEP20TA56 PO (11:02)
[2021-09-02] MEDS ORDERED: FERR325T18 PO (11:02)
== END 2021-09-01 13:33 | disposition home or self-care (01) ==
LOC: PREOP 05:28
PROVIDERS: ATTEND Urology
DX: Z01.818 Encounter for other preprocedural examination (principal)

== ENCOUNTER 2021-09-08 05:59 | Day surgery (SDC) | payer MEDICARE ==
[~2021-09-08] VITALS: Ht 165.4 cm; Wt 95.5 kg
[2021-09-08] VITALS (14 sets, daily range): BP systolic 109–164; BP diastolic 20–96
[~2021-09-08 05:59] MED LIST changes: +CARV12.53 PO; +CHOL10004 PO; +DULO60CA59 PO; +FERR325T18 PO; +OMEG1CAP24 PO; +OMEP20TA56 PO; +TOLT1TAB13 PO; +TRAM50TA3 PO
[2021-09-08] MEDS ORDERED: cefTRIAXone 1 GM PRE-MIX 50 ML IV ONE (06:32)
[2021-09-08] MEDS: cefTRIAXone 1 GM PRE-MIX 50 ML IV ONE ×2 (06:36→07:54)
[2021-09-08] MEDS: LACTATED RINGERS 1,000 ML IV PRN ×2 (06:37→08:45)
[2021-09-08] MEDS ORDERED: ESTRADIOL VAGINAL CREAM 42.5 GM (ESTRACE) VG ONE (07:01)
[2021-09-08] MEDS ORDERED: LIDOCAINE/EPI 2% 1:200,00 (XYLOCAINE) 10 ML VIAL ONE (07:01)
--- NOTE | 2021-09-08 07:37 | Progress Note-Pre Operative ---
Pre-Operative Progress Note H&P Reviewed The H&P was reviewed, patient examined and no changes noted. Date Seen by Provider: Sep 08, 2021 Time Seen by Provider: 07:36 Date H&P Reviewed: Sep 08, 2021 Time H&P Reviewed: 07:36 Pre-Operative Diagnosis: INCONTINENCE, OAB, ISD MARIO ALVAREZ MD Sep 08, 2021 07:37
[2021-09-08] MEDS ORDERED: fentaNYL INJ 100 MCG/2 ML AMP ONE (07:39)
--- NOTE | 2021-09-08 07:39 | Progress Note-Post Operative ---
Post-Operative Progess Note Surgeon (s)/Biomass Plant Manager (s) Surgeon MARIO ALVAREZ MD Biomass Plant Manager: NONE Pre-Operative Diagnosis INCONTINENCE, OAB, ISD, CYSTOCELE Post-Operative Diagnosis SAME AND URETHRAL LESION Procedure & Operative Findings Date of Procedure 09/08/21 Procedure Performed/Findings EXCISION OF URETHRAL LESION, ANTERIOR REPAIR, PVS, AND CYSTOSCOPY Anesthesia Type GENERAL Estimated Blood Loss Estimated blood loss (mL): LESS THAN 50CC Specimens/Packing Specimens Removed NONE TO PATH PackinGM ESTRACE VAG PACK MARIO ALVAREZ MD Sep 08, 2021 07:38
[2021-09-08] MEDS ORDERED: SEVOFLURANE (ULTANE) 15 ML INHAL SOLN ONE (08:41)
[2021-09-08] MEDS ORDERED: proPOfol 200 MG/20 ML (DIPRIVAN) VIAL IV ONE (08:41)
[2021-09-08] MEDS ORDERED: ONDANSETRON 4 MG/2 ML (SDV) Z0FRAN ONE (08:42)
[2021-09-08] MEDS ORDERED: LIDOCAINE PF 2% 5 ML (XYLOCAINE) VIAL ONE (08:42)
--- NOTE | 2021-09-08 09:02 | Anesthesia-General Post-Op ---
General Patient Condition Mental Status/LOC: Same as Preop Cardiovascular: Satisfactory Nausea/Vomiting: Absent Respiratory: Satisfactory Pain: Controlled Complications: Absent Post Op Complications Complications None Follow Up Care/Instructions Patient Instructions None needed. Anesthesia/Patient Condition Patient Condition Patient is doing well, no complaints, stable vital signs, no apparent adverse anesthesia problems. No complications reported per nursing. DARYA WAGNER CRNA Sep 08, 2021 09:02
[2021-09-08] MEDS: LACTATED RINGERS 1,000 ML IV SCH ×2 (09:06→16:56)
[2021-09-08] MEDS ORDERED: morphine INJ 10 MG/ML 1ML (SYR OR VIAL) IVP ONE (09:15)
--- NOTE | 2021-09-08 14:58 | OPERATIVE REPORT ---
DATE OF SERVICE: 09/08/2021 PREOPERATIVE DIAGNOSES: Incontinence with overactive bladder, ISD and cystocele. POSTOPERATIVE DIAGNOSES: Incontinence with overactive bladder, ISD and cystocele and urethral lesion, possible caruncle. OPERATION PERFORMED: Excision of urethral lesion, anterior repair, pubovaginal sling, and cystoscopy. SURGEON: Puma Alvarez MD. ANESTHESIA: General. COMPLICATIONS: None. DESCRIPTION OF PROCEDURE: Under satisfactory general anesthesia, the patient in extended lithotomy position, genitalia were prepped and draped in the usual sterile fashion using a separate vaginal prep. Flores catheter was inserted and the bladder was drained noted. I noted an external urethral meatal lesion at the 6 o'clock position looking like a caruncle. I went ahead and excised it and cauterized the base with complete hemostasis. I infiltrated the anterior vaginal wall with lidocaine and epinephrine. I made a longitudinal incision in the anterior vaginal wall, dissected the mucosa off the underlying fascia. There was quite thickening of the mucosa with rugosity, but I was able to dissect it well to be able to insert the sling in the right position. I went ahead and approximated the fascia with a few interrupted 2-0 Vicryl sutures. Then, I passed the Desara #2 sling on both sides using the described technique. Sling was sitting nicely under the mid urethra with no twisting, tension, and passage of the hemostat easily between it and the underlying urethra. I removed the Flores catheter and performed cystoscopy to confirm the integrity of the bladder, urethra and ureteric orifices, where no foreign body and presence of the sling under the mid urethra. I left the bladder half removed the Flores catheter. Bladder was a small capacity as we know, but doing well. Manual Valsalva maneuver was negative. I reinserted the Flores catheter draining clear urine. The excess vaginal mucosa was excised and the rest was approximated in an inverted Z-shaped way because of the lack of good healthy mucosa and avoiding two rugosities and first I fixed the size in the top with interrupted 2-0 Vicryl and then ran the 2-0 rapid Vicryl suture. A 2 gram Estrace vaginal pack was inserted. Estimated blood loss was less than 50 mL, none of which was replaced. Urine was clear. Needle, sponge, and instrument counts were correct x2. The patient tolerated the procedure and anesthesia well and was sent to recovery room in a stable condition. Job ID: [id number] DocumentID: [id number] Dictated Date: 09/08/2021 08:51:34 Safe And Vault Mechanic Date: 09/08/2021 14:57:07 Dictated By: PUMA ALVAREZ MD
[2021-09-08] MEDS ORDERED: PATIENT MAY USE OWN MEDS, ALL MC SCH (17:30)
[2021-09-08] MEDS ORDERED: VITAMIN D3 25 MCG (1,000 UNITS) TABLET PO SCH (18:00)
[2021-09-09 00:39] VITALS: BP 145/68
[2021-09-09] MEDS: LACTATED RINGERS 1,000 ML IV SCH ×2 (01:36→07:45)
[2021-09-09 03:24] VITALS: BP 148/71
[2021-09-09 06:50] VITALS: BP 148/72
[2021-09-09] MEDS ORDERED: OMEPRAZOLE 20 MG (PriLOSEC) CAP NON-FORMULARY PO SCH (07:00)
[2021-09-09] MEDS ORDERED: OMEGA 3 (FISH OIL) 1000 MG CAP PO SCH (09:00)
[2021-09-09] MEDS ORDERED: DULOXETINE 60 MG CAPSULE PO SCH (09:00)
[2021-09-09] MEDS ORDERED: FERROUS SULF 325 MG (IRON) TAB PO SCH (09:00)
--- NOTE | 2021-09-09 10:13 | Progress Note - Urology ---
Progress Note-Urology Progress Notes/Assess & Plan Progress/Assessment & Plan DOING VERY WELL. VOIDED 300CC. DRY. HAPPY. CHECK PVR NEXT TIME TO DECIDE PLAN. INSTRUCTIONS GIVEN TO PATIENT AND Final Diagnosis INCONTINENCE, CYSTOCELE AND OAB MARIO ALVAREZ MD Sep 09, 2021 10:12
[2021-09-09] MEDS ORDERED: CIPR-225 PO (12:02)
[2021-09-09] MEDS ORDERED: MUPI22OI2 TP (12:08)
== END 2021-09-09 12:40 | disposition home or self-care (01) ==
LOC: SDC 05:59 → EDSTATUS 09:00 → WS 09:45 → SDC 09-09 12:40
PROVIDERS: ATTEND Urology
DX: N39.46 Mixed incontinence (principal); N36.43 Combined hypermobility of urethra and intrinsic sphincter deficiency; N32.81 Overactive bladder; N81.10 Cystocele, unspecified; D18.09 Hemangioma of other sites
CPT/HCPCS: 53200; 57240; 57288; 87081; 94664; C1771

== ENCOUNTER 2021-12-05 19:24 | Outpatient (CLI) | payer MEDICARE ==
[~2021-12-05 19:24] MED LIST changes: +CIPR-225 PO; +MUPI22OI2 TP
== END 2021-12-06 06:15 | disposition home or self-care (01) ==
LOC: SLEEP 19:24
PROVIDERS: ATTEND Otolaryngology Otolaryngology/Facial Plastic Surgery
DX: G47.33 Obstructive sleep apnea (adult) (pediatric) (principal); G47.00 Insomnia, unspecified
CPT/HCPCS: 95810